=== PATIENT | female | born 1945 | race Caucasian/White ===

== ENCOUNTER 2016-09-10 21:32 | Outpatient (CLI) | payer MEDICARE, OTHER | END 2016-09-10 21:33 | disposition home or self-care (01) | DX: R10.9 Unspecified abdominal pain (principal); K85.90 Acute pancreatitis without necrosis or infection, unspecified ==

== ENCOUNTER 2017-01-14 10:34 | Outpatient (CLI) | payer MEDICARE, OTHER ==
[2017-01-14] MEDS ORDERED: BARIUM SULFATE 454 GM TUBE PO ONE (11:15)
--- NOTE | 2017-01-14 11:28 | XRAY Report ---
MODIFIED BARIUM SWALLOW: 01/14/2017 CLINICAL INDICATION: Dysphagia. FINDINGS: Various consistencies of barium were prepared and administered in conjunction with Speech Pathology. There was trace penetration with thin liquids. Other consistencies were unremarkable. P [place] also refer to full report from Speech Pathology for further findings. IMPRESSION: TRACE PENETRATION WITH THIN LIQUIDS. FLUOROSCOPY TIME: 1 minute 20 seconds; 1 spot image obtained (cinefluoroscopy recorded). JOB #: [id number] EXT JOB #:
== END 2017-01-14 10:35 | disposition home or self-care (01) ==
LOC: DI 10:34
PROVIDERS: ATTEND Family Medicine
DX: R13.12 Dysphagia, oropharyngeal phase (principal)
CPT/HCPCS: 74230; 92611; G8996; G8997; G8998